=== PATIENT | male | born 1980 | race Caucasian/White ===

== ENCOUNTER 2019-08-08 08:55 | Emergency (ER) | payer MEDICAID ==
[~2019-08-08] VITALS: Ht 170.2 cm; Wt 87.5 kg
[2019-08-08 09:04] VITALS: BP 124/74
--- NOTE | 2019-08-08 09:09 | NUR ---
PT AMBULATED TO ER BED 06
--- NOTE | 2019-08-08 09:14 | NUR ---
38/M C/O N/V AND INTERMITTENT MID ABD PAIN X TODAY. ATE NEW ZEALANDER BEEF DISH YESTERDAY. OTHER MEMBERS OF THE FAMILY HAVING SIMILAR SYMPTOMS. NAD; VSS; BEDRAILS UP X1. HX- DENIES Addendum: 08/08/19 at 0917 by AXEL PATIENT SITTING IN CHAIR AT BEDSIDE
--- NOTE | 2019-08-08 09:14 | NUR ---
DR. MCCALL EVALUATING PT AT BEDSIDE.
[2019-08-08] MEDS ORDERED: FAMOTIDINE 20 MG TAB PO ONE (09:15)
[2019-08-08] MEDS ORDERED: hydrOXYzine HCL 25 MG TAB PO ONE (09:15)
[2019-08-08] MEDS ORDERED: PROMETHAZINE 25 MG/ML VIAL IM ONE (09:15)
[2019-08-08] MEDS ORDERED: MECLIZINE 25 MG TAB PO ONE (09:20)
[2019-08-08] MEDS ORDERED: ONDANSETRON 4 MG ODT PO ONE (09:20)
--- NOTE | 2019-08-08 10:07 | NUR ---
GAVE PT JUICE AND JELLO PER DR. MCCALL ORDERS.
--- NOTE | 2019-08-08 10:17 | NUR ---
PT CONSUMED ONE JELLO AND ONE JUICE BOX; DENIES N/V. STATES FEELS COMFORTABLE.
--- NOTE | 2019-08-08 10:47 | NUR ---
DR. MCCALL SPEAKING WITH PT AT BEDSIDE.
[2019-08-08 11:03] VITALS: BP 124/74
--- NOTE | 2019-08-08 11:03 | NUR ---
Patient discharged with v/s stable. Written and verbal after care instructions given and explained. Patient alert, oriented and verbalized understanding of instructions. Ambulatory with steady gait. All questions addressed prior to discharge. ID band removed. Patient advised to follow up with PMD. Rx of COMPAZINE given. Patient educated on indication of medication including possible reaction and side effects. Opportunity to ask questions provided and answered.
== END 2019-08-08 11:03 | disposition home or self-care (01) ==
LOC: MED 08:55
DX: A05.9 Bacterial foodborne intoxication, unspecified (principal); K29.70 Gastritis, unspecified, without bleeding
CPT/HCPCS: 96372; 99284; J2550; J8597; Q0162

== ENCOUNTER 2024-01-07 18:50 | Emergency (ER) | payer MEDICAID, OTHER ==
[~2024-01-07] VITALS: Ht 170.2 cm; Wt 89.8 kg
[2024-01-07 19:00] VITALS: BP 145/80; PULSE 86; RESP 20; TEMP 98.1; O2SAT 98
[2024-01-07 19:32] LABS: APPEARANCE,URINE CLEAR (CLEAR); BILIRUBIN,URINE NEGATIVE (NEGATIVE); BLOOD, URINE NEGATIVE (NEGATIVE); COLOR,URINE YELLOW (YELLOW); LEUKOCYTE ESTERASE ,URINE NEGATIVE (NEGATIVE); NITRITE, URINE NEGATIVE (NEGATIVE); PROTEIN,URINE NEGATIVE (NEGATIVE); UGLUCOSE NEGATIVE (NEGATIVE); UROBILINOGEN,URINE 0.2 EU/dL (0.2 - 1)
[2024-01-07] MEDS: KETOROLAC 30 MG/ML VIAL IM ONE (20:23)
[2024-01-07] MEDS ORDERED: IBUP-2213 PO (20:44)
== END 2024-01-07 20:52 | disposition home or self-care (01) ==
LOC: MED 18:50
DX: N43.3 Hydrocele, unspecified (principal); Z79.899 Other long term (current) drug therapy
CPT/HCPCS: 76870; 81003; 87491; 96372; 99285; J1885; Q0092

== ENCOUNTER 2024-02-24 18:15 | Emergency (ER) | payer OTHER ==
[~2024-02-24] VITALS: Ht 170.2 cm; Wt 92.1 kg
[~2024-02-24 18:15] MED LIST: IBUP-2213 PO
[2024-02-24 18:44] VITALS: BP 132/81; PULSE 65; RESP 18; TEMP 97.7; O2SAT 97
[2024-02-24] MEDS: KETOROLAC 30 MG/ML VIAL IM ONE (20:16)
[2024-02-24] MEDS: LIDOCAINE 5% 1 EA PATCH TP ONE (20:17)
[2024-02-24] MEDS ORDERED: CYCL-711 PO (20:46)
[2024-02-24] MEDS ORDERED: NAPR-337 PO (20:46)
[2024-02-24] MEDS ORDERED: LID5T TP (20:46)
[2024-02-24] MEDS: HYDROcodone/APAP 5/325 MG 1 TAB TAB PO ONE (20:55)
[2024-02-24 20:56] VITALS: BP 132/81; PULSE 65; RESP 18; TEMP 97.7; O2SAT 97
== END 2024-02-24 20:56 | disposition home or self-care (01) ==
LOC: MED 18:15
DX: M54.50 Low back pain, unspecified (principal); Z79.1 Long term (current) use of non-steroidal anti-inflammatories (NSAID); Z79.899 Other long term (current) drug therapy
CPT/HCPCS: 96372; 99283; J1885